=== PATIENT | male | born 1970 | race Caucasian/White ===

== ENCOUNTER → 2016-06-24 | Outpatient (CLI) | payer MEDICARE ==
[~2016-06-24] MED LIST: HYDR50CA PO; OXCA600T3 PO; RISP4TAB34 PO
== END | disposition home or self-care (01) ==
LOC: CFH 12:03
PROVIDERS: ATTEND Internal Medicine Cardiovascular Disease
DX: E78.5 Hyperlipidemia, unspecified (principal)
CPT/HCPCS: 36415; 80061

== ENCOUNTER 2016-10-31 20:34 | Emergency (ER) | payer MEDICARE ==
[~2016-10-31] VITALS: Ht 185.4 cm; Wt 100.0 kg
[2016-10-31] MEDS ORDERED: LORA-446 PO (20:57)
[2016-10-31] MEDS ORDERED: LORA-445 PO (20:57)
[2016-10-31] MEDS ORDERED: ONDANSETRON 2MG/ML, 2ML ONE (21:50)
[2016-10-31] MEDS ORDERED: ONDANSETRON 2MG/ML, 2ML IVPush ONE (22:00)
[2016-10-31] MEDS ORDERED: SODIUM CHLORIDE 0.9% 1,000ML IVBOLUS ONE (22:00)
[2016-10-31] MEDS ORDERED: SODIUM CHLORIDE FLUSH 10ML SYR IVF ONE (22:00)
[2016-10-31 22:07] LABS: HEMATOCRIT 40.6 % (39.2-51.8); HEMOGLOBIN 13.7 g/dL (13.7-18.0); WHITE BLOOD COUNT 5.6 x10^3/uL (3.4-10)
[2016-10-31 22:16] LABS: ASPARTATE AMINO TRANSFERASE 19 U/L (15-37); BLOOD UREA NITROGEN 5 mg/dL (7-18)
[2016-10-31] MEDS ORDERED: MAALOX/HYOSCYAMINE/LIDOCAINE 45 ML BTL ONE (23:05)
[2016-10-31 23:10] VITALS: BP 126/84
[2016-10-31] MEDS ORDERED: MAALOX/HYOSCYAMINE/LIDOCAINE 45 ML BTL PO ONE (23:30)
== END 2016-10-31 23:19 | disposition home or self-care (01) ==
LOC: ED 23:10
DX: R11.2 Nausea with vomiting, unspecified (principal); K21.9 Gastro-esophageal reflux disease without esophagitis
CPT/HCPCS: 36415; 80053; 83690; 85025; 93005; 96361; 96374; 99285; J2405; J7030

== ENCOUNTER 2019-03-20 23:31 | Emergency (ER) | payer MEDICARE ==
[~2019-03-20] VITALS: Ht 185.4 cm; Wt 109.0 kg
[~2019-03-20 23:31] MED LIST changes: +LORA-445 PO; +LORA-446 PO
--- NOTE | 2019-03-20 23:38 | NUR ---
PT TO LOBBY, WAIT TIME EXPLAINED.
--- NOTE | 2019-03-21 00:14 | NUR ---
pt to room from lobby
[2019-03-21] MEDS ORDERED: ONDANSETRON ODT 4 MG PO ONE (00:30)
[2019-03-21] MEDS ORDERED: ASPIRIN 81 MG TABLET CHEW PO ONE (00:30)
[2019-03-21] MEDS ORDERED: ASPIRIN 81 MG TABLET CHEW ONE (00:50)
[2019-03-21] MEDS ORDERED: ONDANSETRON ODT 4 MG ONE (00:50)
[2019-03-21 01:09] LABS: ALANINE AMINOTRANSFERASE 29 U/L (12-78); ALBUMIN 3.5 g/dL (3.4-5.0); ANION GAP 6 mmol/L (5-15); BASOPHILS # (AUTO) 0.04 x10^3/uL (0-0.1); BASOPHILS % (AUTO) 1 % (0-1); CALCIUM 8.6 mg/dL (8.5-10.1); CHLORIDE 102 mmol/L (98-107); CREATININE 1.05 mg/dL (0.7-1.3); EOSINOPHILS # (AUTO) 0.09 x10^3/uL (0-0.4); EOSINOPHILS % (AUTO) 2 % (1-7); LYMPHOCYTES # (AUTO) 2.28 x10^3/uL (1-3.4); LYMPHOCYTES % (AUTO) 48 % (22-44); MD NO; MEAN CORPUSCULAR HEMOGLOBIN 30.6 pg (27.5-34.5); MEAN CORPUSCULAR HGB CONC 33.9 g/dL (33.2-36.2); MEAN CORPUSCULAR VOLUME 90.3 fL (81-97); MEAN PLATELET VOLUME 6.1 fL (7.4-10.4); MONOCYTES # (AUTO) 0.34 x10^3/uL (0.2-0.8); MONOCYTES % (AUTO) 7 % (2-9); NEUTROPHILS # (AUTO) 1.98 x10^3/uL (1.8-6.8); NEUTROPHILS % (AUTO) 42 % (42-75); PLATELET COUNT 277 x10^3/uL (130-400); RED BLOOD COUNT 4.32 x10^6/uL (4.38-5.82); RED CELL DISTRIBUTION WIDTH 13.6 % (9.4-14.8)
[2019-03-21 01:14] LABS: ALKALINE PHOSPHATASE 59 U/L (45-117); BILIRUBIN,TOTAL 0.3 mg/dL (0.2-1.0); TOTAL PROTEIN 6.5 g/dL (6.4-8.2); TROPONIN I < 0.015 ng/mL (0.000-0.045)
[2019-03-21 01:49] VITALS: BP 122/74
== END 2019-03-21 01:51 ==
LOC: ED 03-21 01:45
DX: R11.0 Nausea (principal); R42 Dizziness and giddiness; R94.31 Abnormal electrocardiogram [ECG] [EKG]; K21.9 Gastro-esophageal reflux disease without esophagitis; F17.210 Nicotine dependence, cigarettes, uncomplicated
CPT/HCPCS: 36415; 71046; 80053; 83880; 84484; 85025; 93005; 99284; Q0162

== ENCOUNTER 2019-06-27 13:44 | Emergency (ER) | payer MEDICARE ==
[~2019-06-27] VITALS: Ht 185.4 cm; Wt 106.0 kg
[2019-06-27 13:51] VITALS: BP 149/95
== END 2019-06-27 14:58 | disposition left against medical advice (07) ==
LOC: ED 14:50
DX: H93.8X9 Other specified disorders of ear, unspecified ear (principal); Z53.21 Procedure and treatment not carried out due to patient leaving prior to being seen by health care provider

== ENCOUNTER → 2020-08-28 | Outpatient (CLI) | payer MEDICARE | END | disposition home or self-care (01) | LOC: CFH 12:19 | PROVIDERS: ATTEND Physician Assistant Surgical | DX: M51.27 Other intervertebral disc displacement, lumbosacral region (principal); M47.896 Other spondylosis, lumbar region; M48.07 Spinal stenosis, lumbosacral region | CPT/HCPCS: 72148 ==

== ENCOUNTER 2020-10-17 15:38 | Emergency (ER) | payer MEDICARE, MEDICAID ==
[~2020-10-17] VITALS: Ht 188 cm; Wt 102.0 kg
--- NOTE | 2020-10-17 16:06 | NUR ---
FIDE MELTON BEDSIDE
[2020-10-17] MEDS ORDERED: KETOROLAC 30 MG/1 ML ONE (16:14)
[2020-10-17] MEDS ORDERED: KETOROLAC 30 MG/1 ML IM ONE (16:30)
[2020-10-17 17:24] VITALS: BP 130/84
--- NOTE | 2020-10-17 17:33 | NUR ---
PT REC'VD DISCHARGE INSTRUCTIONS AND EDUCATION. PT HAD NO FURTHER QUESTIONS,. PT AMBULATED TO DC AREA, STEADY GAIT.
== END 2020-10-17 17:58 | disposition home or self-care (01) ==
LOC: ED 16:28
DX: M79.662 Pain in left lower leg (principal); M79.652 Pain in left thigh; K21.9 Gastro-esophageal reflux disease without esophagitis
CPT/HCPCS: 93971; 96372; 99284; J1885